=== PATIENT | female | born 1985 | race Caucasian/White ===

== ENCOUNTER 2018-12-06 07:14 | Outpatient (CLI) | payer OTHER ==
--- NOTE | 2018-12-07 09:57 | MRI Report ---
Reason: PAIN IN RIGHT KNEE, ILIOTIBIAL BAND SYNDROME Procedure Date: 12/06/2018 Accession Number: [id number] / [id number] Procedure: MRI - Knee RT W/O CPT Code: FULL RESULT: EXAM: RIGHT KNEE MRI WITHOUT CONTRAST EXAM DATE: 12/06/2018 07:38 AM. CLINICAL HISTORY: Pain in right knee, iliotibial band syndrome. COMPARISON: None. TECHNIQUE: Multiplanar, multisequence T1-weighted and fluid-sensitive sequences of the knee without contrast. Other: None. FINDINGS: Bones: Large osteophytes at the lateral femoral condyle. Moderate osteophytes at the medial femoral condyle. Mild spurring of the medial tibial plateau. Proximal posterior tibia 1.9 x 2.7 x 1.8 cm complex intraosseous ganglion cyst. Artifact from transverse fixation screws at the lateral aspect of the distal femur metaphysis, distal femur metaphysis osteotomy. Mild spurring of the posterior aspect of the lateral femoral condyle. Large osteophytes at the anterior aspect of the medial and lateral femoral condyles. Articular Cartilage: Moderate chondromalacia at the patella. Moderate chondromalacia at the trochlear groove. Moderate chondromalacia at the medial tibiofemoral compartment. Severe chondromalacia at the lateral tibiofemoral compartment. Medial Meniscus: Diminutive posterior horn of the medial meniscus and diminutive medial meniscus body, suggestive of a prior partial meniscectomy with no meniscus intrameniscal fluid signal to confirm a tear. Lateral Meniscus: Possible small free edge tear at the lateral meniscus body. Cruciate Ligaments: The anterior and posterior cruciate ligaments are intact. Collateral Ligaments: The medial collateral and lateral collateral ligamentous structures are intact. Tendons: Postsurgical changes with mild thickening in the distal iliotibial band. Musculature: No edema or fatty atrophy. Other: No effusion. No popliteal cyst. No loose bodies. The medial and lateral retinacula are intact. The subcutaneous tissues and fat pads are unremarkable. IMPRESSION: 1. Severe osteoarthritis of the patellofemoral compartment and tibiofemoral compartment. Kellgren-Ethan grade 3. 2. Possible small free edge tear at the lateral meniscus body. 3. Diminutive body and posterior horn of the medial meniscus, suggestive of prior surgery, with no intrameniscal fluid signal to confirm a medial meniscus tear. 4. Postsurgical changes and mild thickening in the iliotibial band. 5. Moderate quantity of fluid at the patella recesses. 6. Moderate chondromalacia patella, moderate chondromalacia grade 3 at the trochlear groove, and there is moderate chondromalacia at the medial tibiofemoral compartment. 7. Severe chondromalacia at the lateral tibiofemoral compartment. RADIA
== END 2018-12-06 07:15 | disposition home or self-care (01) ==
LOC: DI 07:14
PROVIDERS: ATTEND Orthopaedic Surgery
DX: M17.11 Unilateral primary osteoarthritis, right knee (principal); M94.261 Chondromalacia, right knee

== ENCOUNTER 2019-01-11 11:31 | Day surgery (SDC) | payer OTHER ==
[2019-01-11] MEDS ORDERED: LACTATED RINGERS 1,000 ML IV ONE ×2 (11:51→15:09)
[2019-01-11] MEDS ORDERED: EPINEPHrine 1 MG/ML AMP ONE (11:57)
--- NOTE | 2019-01-11 12:18 | ANESTHESIA ---
Pre-Anesthesia VS, & Labs - Diagnosis Rt knee symptomatic hardware, meniscal tear - Procedure right knee open hardware removal Vital Signs: Temp Pulse Resp BP Pulse Ox 36.4 C L 90 15 130/74 97 01/11/19 11:54 01/11/19 11:54 01/11/19 11:54 01/11/19 11:54 01/11/19 11:54 Height 6 ft Weight (kg) 100.7 kg - NPO >8 hours - Is Patient ?: No Home Medications and Allergies Home Medications: Ambulatory Orders Etonogestrel/Ethinyl Estradiol [Nuvaring Vaginal Ring] 1 each VG 01/03/19 Etonogestrel/Ethinyl Estradiol [Nuvaring Vaginal Ring] 1 each VG 01/03/19 Allergies/Adverse Reactions: Allergies Allergy/AdvReac Type Severity Reaction Status Date / Time No Known Drug Allergies Allergy Verified 01/03/19 08:37 Anes History & Medical History - Anesthetic History Anesthesia Complications: reports: No previous complications - Medical History Cardiovascular: reports: None, Arrhythmia (history of SVT, s/p ablation.) Pulmonary: reports: None Gastrointestinal: reports: None Urinary: reports: None Neuro: reports: None Musculoskeletal: reports: None Endocrine/Autoimmune: reports: None Blood Disorders: reports: None Skin: reports: None Smoking Status: Never smoker Psychosocial: reports: No issues indicated - Surgical History Eyes Ears Nose Throat (EENT): Other Cardiothoracic: Other Orthopedic: Arthroscopic surgery, Other Exam General: Alert, Oriented x3, Cooperative, No acute distress Dental: WNL Mouth Openin Fingerbreadth Neck Mobility: Normal Mallampati classification: I Thyromental Distance: greater than 6 cm Respiratory: Lungs clear, Normal breath sounds, No respiratory distress, No accessory muscle use Cardiovascular: Regular rate, Normal S1, Normal S2, No murmurs Mental/Cognitive Status: Alert/Oriented X3, Normal for patient Plan Anesthesia Type: General Consent for Procedure(s) Verified and Reviewed: Yes Code Status: Attempt Resuscitation ASA classification: 1-Healthy patient Is this case an emergency?: No
[2019-01-11 12:48] LABS: HCG UR QUAL NEGATIVE
[2019-01-11] MEDS: BUPIVACAINE 0.25% PF 30 ML VIAL ONE ×2 (13:37→14:52)
[2019-01-11] MEDS ORDERED: oxyCODONE 5 MG TABLET PO PRN (15:02)
[2019-01-11] MEDS ORDERED: ONDANSETRON 4 MG/2 ML VIAL IVP PRN (15:02)
[2019-01-11] MEDS: fentaNYL 100 MCG/2 ML VIAL ONE ×2 (15:13→15:18)
--- NOTE | 2019-01-11 15:14 | OPERATIVE REPORT ---
Operative Report - Other Other Information/Narrative: Date of Surgery: 11 January 2019 Pre-Op Diagnosis: Right knee medial and lateral cartilage lesions, meniscus tears, symptomatic implants Procedure: Right knee arthroscopy with chondroplasty of trochlea, medial femoral condyle, lateral femoral condyle. Loose body removal. Symptomatic implants removal from distal femur Postop Diagnosis: Same, add loose body Primary Surgeon: Titi Prescott Secondary Surgeon: None Complications: None Tourniquet Time: 85 minutes EBL: 50 cc Indication For Surgery: 33-year-old female with 5 surgeries on her knee. She is previously had a meniscus root repair as well as a opening wedge distal femur osteotomy. The osteotomy plate was symptomatic and she had posterior medial pain of the knee concerning for meniscus pathology. We discussed treatment options to include nonoperative and operative measures. She wanted to move forward with surgery to hopefully improve her symptoms with the understanding that she did have degenerative changes in the knee. The risks, benefits, and alternatives were discussed. Risks include pain, bleeding, infection, damage to nearby structures and cartilage, lack of symptom relief, need for further surgery, DVT, PE, stroke, and . Written consent was obtained. Examination Under Anesthesia: ROM 5-120. Stable dial at 30 & 90 degrees. Stable to varus and valgus stressing at 0 & 30 degrees. Normal Ginette. Normal Pivot shift. There was mechanical sensation with range of motion Arthroscopic Findings: A single loose body was removed from the notch. Synovium was hypertrophic and thickened. Patella cartilage grade 2-3 changes throughout. Trochlear cartilage had large full-thickness and partial-thickness lesions with unstable edges. Medial femoral condyle cartilage had a large full-thickness lesion with unstable edges and a flap that had ossified sticking out. Medial tibial plateau cartilage had grade 2/3 changes throughout. Medial meniscus was extruded from the joint, I could not see the posterior horn because of how tight the knee was, the root was likely out because the probe could move into the notch from the on the meniscus. ACL was normal. PCL was normal. Lateral femoral condyle cartilage had a large full-thickness lesion measuring 7 mm x 20 mm with unstable edges. Lateral tibial plateau cartilage had grade 2 3 changes throughout. Lateral meniscus showed no tears, the knee was very tight and I could not assess the posterior horn. Procedure in Detail: The patient was met in the pre-operative hold area on the day of the procedure. The operative extremity was signed and questions were answered. The patient was brought to the operating room and a general anesthetic was administered. Supine position was used and bony prominences were padded. An examination under anesthesia was performed. Standard prepping and draping was performed. A time out confirmed patient identification, laterality, procedure, allergies, antibiotics, and images. An Esmarch was used to exsanguinate the limb and the tourniquet was elevated to 250 mmHg. A standard diagnostic arthroscopy of the knee was performed through anterolateral and anteromedial portal sites. The anteromedial portal was created under direct visualization after localizing with a spinal needle. The findings can be found above. I then proceeded to remove the loose body from the notch. I then proceeded to use a shaver and biter to remove all unstable portions of the cartilage lesions in the medial femoral condyle, lateral femoral condyle, and trochlea. I then used the shaver to remove the osteophyte off the medial patella. I performed removal of the hypertrophic scar tissue with a shaver as well. Final images were taken and all arthroscopic fluid and instruments were removed from the knee. I then used her prior lateral incision to perform a lateral approach of the distal femur. Full-thickness skin flaps were obtained. The IT band was split in line of its fibers. Vastus lateralis was carefully lifted off of the fascia anteriorly to expose the plate to the lateral femur. The plate and screws were then removed without issue. The osteotomy site was seen as well healed and stable. The wound was irrigated copiously and the IT band was closed with in terrupted 0 Vicryl. 2-0 Vicryl was used in the dermis and a running Monocryl was in the skin. Portals were closed with buried Monocryl. 30 cc of 0.25% Marcaine without epinephrine was injected near the portal sites and lateral incision. A sterile dressing and compression stocking was placed. The patient was awakened and transferred to recovery in stable condition.
[2019-01-11] MEDS: HYDROmorphone 0.5 MG/0.5 ML SYRINGE ONE ×4 (15:23→15:38)
[2019-01-11] MEDS ORDERED: ONDANSETRON 4 MG/2 ML VIAL ONE (16:09)
[2019-01-11] MEDS ORDERED: oxyCODONE 5 MG TABLET ONE (16:10)
[2019-01-11 16:29] VITALS: BP 120/71
--- NOTE | 2019-01-11 20:30 | XRAY Report ---
Reason: REMOVING IMPLANTS Procedure Date: 01/11/2019 Accession Number: [id number] / [id number] Procedure: [place] - OR C-Arm Procedure CPT Code: Final Report FULL RESULT: EXAM: FLUOROSCOPIC GUIDANCE EXAM DATE: 01/11/2019 02:32 PM. CLINICAL HISTORY: REMOVING IMPLANTS. COMPARISON: None. FINDINGS: Please refer to impression IMPRESSION: Fluoroscopic guidance provided for right knee surgery. Total fluoroscopy time: 0.1 minute. Number of images: 2. DAMARIS
== END 2019-01-11 11:32 | disposition home or self-care (01) ==
LOC: SDS 11:31
PROVIDERS: ATTEND Orthopaedic Surgery
PROC: 0SCC4ZZ Extirpation of Matter from Right Knee Joint, Percutaneous Endoscopic Approach (ICD-10-PCS; 2019-01-11)
PROC: 0QPB04Z Removal of Internal Fixation Device from Right Lower Femur, Open Approach (ICD-10-PCS; principal; 2019-01-11 13:45)
PROC: 0SBC4ZZ Excision of Right Knee Joint, Percutaneous Endoscopic Approach (ICD-10-PCS; 2019-01-11 13:45)
DX: T84.84XA Pain due to internal orthopedic prosthetic devices, implants and grafts, initial encounter (principal); M17.11 Unilateral primary osteoarthritis, right knee; M23.41 Loose body in knee, right knee; M25.761 Osteophyte, right knee; Z86.79 Personal history of other diseases of the circulatory system; Z87.39 Personal history of other diseases of the musculoskeletal system and connective tissue
CPT/HCPCS: 81025

== ENCOUNTER 2019-11-23 09:38 | Outpatient (CLI) | payer OTHER ==
--- NOTE | 2019-11-26 10:27 | Ultrasound Report ---
LIMITED ULTRASOUND OF LEFT BREAST AND AXILLA: 11/23/2019 CLINICAL: Nipple discharge, left breast, not bloody. No prior exams were available for comparison. Color flow and real-time ultrasound of the left breast retroareolar and axilla regions were performe d. Rivas scale images of the real-time examination were reviewed. No significant abnormalities were seen sonographically in the left breast or the left axilla. IMPRESSION: NEGATIVE There is no sonographic evidence of malignancy. Return to annual screening schedule is recommended. This exam was interpreted at Station ID: [id number]. Electronically Signed By: Juan Diego Sharma M.D., jr/karoline:11/23/2019 11:20:25 Ultrasound BI-RADS: 1 Negative BI-RADS CATEGORY: (1) - 1 Unspecified - other [id number] return to screening LATERALITY: (B)
--- NOTE | 2019-11-26 10:27 | Mammography Report ---
BILATERAL DIGITAL DIAGNOSTIC MAMMOGRAM 3D/2D: 11/23/2019 CLINICAL: Nipple discharge, left breast, not bloody. No prior exams were available for comparison. The tissue of both breasts is extremely dense, which l owers the sensitivity of mammography. No significant masses, calcifications, or other findings are seen in either breast. IMPRESSION: INCOMPLETE: NEEDS ADDITIONAL IMAGING EVALUATION No suspicious mammographic findings. A targeted ultrasound of the left retroareolar region is recomme nded to evaluate nipple discharge, and is scheduled to immediately follow this exam. This exam was interpreted at Station ID: [id number]. NOTE: For mammograms, a report in lay terms will be sent to the patient. Approximately 15% of breast malignancies will not be visualized mammographically. In the management of a palpable breast mass, a negative mammogram must not discourage biopsy of a clinically suspicious lesion. Electronically Signed By: Juan Diego Sharma M.D. jr/:11/23/2019 10:36:48 ACR BI-RADS Category 0: Incomplete 3340F PARENCHYMAL PATTERN: (VD) - The breast(s) demonstrate(s) extremely dense parenchyma, limiting the sen sitivity of mammography. BI-RADS CATEGORY: (0) - 0 Ultrasound [id number] Immediate follow-up LATERALITY: (B)
== END 2019-11-23 09:39 | disposition home or self-care (01) ==
LOC: DI 09:38
PROVIDERS: ATTEND Surgery
DX: N64.52 Nipple discharge (principal)
CPT/HCPCS: 76642; 77066

== ENCOUNTER 2020-08-06 14:32 | Outpatient (CLI) | payer OTHER ==
--- NOTE | 2020-08-06 17:50 | MRI Report ---
PROCEDURE: Finger(s) RT W/O INDICATIONS: SPRAIN OF THUMB TECHNIQUE: Noncontrast oblique coronal T1 spin echo and T2 fast spin echo with fat saturation, axial and sagitta l T2 fast spin echo with fat saturation, through the thumb. COMPARISON: None. FINDINGS: Image quality: Excellent. Bones: The bones are normally aligned, without marrow contusions or fractures. No intra-osseous les ions. First carpometacarpal joint: On sagittal images, the dorsal radial ligament and posterior oblique li gament appear intact. The intermetacarpal ligament between the 1st and 2nd metacarpal bases also daniel ears intact. On the volar aspect, there is suggestion of sprain/low-grade partial thickness tear inv olving anterior oblique ligament near its proximal insertion. First metacarpophalangeal joint: The proper and accessory components of the radial collateral ligame nt appears intact, along with overlying fibers of the abductor pollicis brevis tendon. Mildly thicken ed ulnar collateral ligament with heterogeneous intrasubstance T2 hyperintense signal near its proxim al insertion is seen. The aponeurosis of the adductor pollicis muscle also appears normal. The volar plate appears intact on sagittal images, situated between the radial and ulnar sesamoids. Thenar muscles: The superficial abductor pollicis longus muscle appears normal, with tendon insertin g on the radial base of the first proximal phalanx. The opponens pollicis muscle also appears normal , inserting on the first metacarpal shaft. The flexor pollicis brevis muscle appears normal, with te ndon inserting on the radial sesamoid and first proximal phalanx. The oblique and transverse heads o f the adductor pollicis muscle appear normal, inserting on the ulnar sesamoid and proximal phalanx as part of the adductor aponeurosis. Flexor pollicis longus tendon: Tendon fibers appear intact, coursing between the thenar eminence mus cles and the adductor pollicis muscle, and inserting on the volar base of the distal phalanx. The fi rst annular tianna at the level of the first MCP joint appears intact, intimate with the sesamoids. The second annular tianna at the level of interphalangeal joint also appears intact. The oblique brooke ular tinana between the 1st and 2nd annular pulleys appears intact, with ulnar proximal attachment in timate with the adductor aponeurosis. The variable annular tianna also appears intact between the fi rst annular and oblique annular pulleys. Extensor tendons: The extensor pollicis brevis tendon appears intact, coursing radial to the extenso r pollicis longus tendon and inserting on the dorsal base of the proximal phalanx, blending with the dorsal plate of the first MCP joint. The extensor pollicis longus tendon appears intact as it insert s on the dorsal base of the distal phalanx. The sagittal band at the level of the first MCP joint ap pears intact. The abductor pollicis longus tendon slips appear intact at the radial aspect of the pr oximal phalanx, proximal to the abductor pollicis brevis tendon insertion. Miscellaneous: No ganglion cysts. IMPRESSION: 1. Sprain/low-grade partial thickness tear involving proximal portion of anterior oblique ligament at first CMC joint. 2. Sprain/low-grade partial thickness tear involving proximal ulnar collateral ligament of first MCP joint. 3. No marrow edema. No fracture or dislocation. 4. Extensor and flexor tendons are grossly intact. Reviewed by: Nj Mendez MD on 08/06/2020 5:49 PM PDT Approved by: Nj Mendez MD on 08/06/2020 5:49 PM PDT Station ID: [id number]
== END 2020-08-06 14:33 | disposition home or self-care (01) ==
LOC: DI 14:32
PROVIDERS: ATTEND Orthopaedic Surgery
DX: S63.641A Sprain of metacarpophalangeal joint of right thumb, initial encounter (principal); S53.31XA Traumatic rupture of right ulnar collateral ligament, initial encounter

== ENCOUNTER 2021-04-08 15:29 | Outpatient (CLI) | payer OTHER ==
[2021-04-08 16:33] VITALS: BP 117/76
--- NOTE | 2021-04-08 16:33 | SLEEP CARE CONSULTATION ---
Information from patient questionnaire entered by Misti Atkins MA. I have reviewed and concur with the information entered by Misti Atkins MA. This document represents the service I personally performed and the decisions made by , Ana Platt ARNP. History of Present Illness Service Date and Time: 04/08/2021 1529 Reason for Visit: New patient (ONSET 02/2020, PRIOR STUDY WAS NEG) Chief Complaint: reports: Snoring, Fatigue Date of Onset: 10 YEARS Usual bedtime: 10 PM Time it takes to fall asleep: 20 MINUTES Snores at night: Yes Observed to quit breathing while asleep: No Sleeps alone due to snoring: No Number of times waking at night: NOT OFTEN Reasons for waking at night: reports: Snoring, Bathroom Toss, Turn, or Twitch while sleeping: Yes Recalls having dreams: Yes Usually gets out of bed at: 0530; 1000 on weekends Feels refreshed in the morning: No Morning headache: No Sleepy or fatigued during the day: Yes Ever fallen asleep while driving: No Takes day naps: Yes (sometimes) Dreams during day naps: Yes Prior sleep studies: Yes Year and Where: 2013 [facility] Additional HPI information: I had the pleasure of seeing CLARA UREÑA today regarding the possibility of her having a sleep disorder. Her current complaints are snoring and fatigue. He complained about her snoring has been getting more frequent and loud. She states she is always tired. She has SAD and anxiety. The patient tells me that she normally goes to bed around 10-1030 pm, and it takes her approximately 5-10 minutes to fall asleep. She has been told that she snores loudly and irregularly at night. She has not been observed to stop breathing in her sleep. Her bed partner can still sleep in the same bed but sometimes will sleep separately. She can recall waking up on the average of 1-2 times during the night. Most of the time she wakes up because of bathroom. She has occasionally awakened for her own snoring and sometimes coughing. There is not a lot of tossing and turning in her sleep. Generally she can recall having dreams. She usually wakes up at 0530 and does not feel refreshed. She usually does not have a morning headache. During the day she complains of feeling sleepy and fatigued. She has never fallen asleep while driving nor has any accident due to sleepiness. She usually naps for about 1-2 hours during the day. If she naps, upon falling asleep during the day she admits to having dreams. She reports having impaired memory during the day. There is somniloquy (sleep talking) but no somnambulism (sleep walking). She has never experienced cataplexy. She does get some restless legs symptoms when she is walking around a lot when she lays down to sleep. - Parasomnia Symptoms Ever been unable to move upon waking from sleep: No Walks in sleep: No Talks in sleep: Yes Ever acted out dreams in sleep: No Ever felt weak in the knees when startled or emotional: No Bothered by creepy, crawly, restless sensations in legs: Yes Problems with memory or concentration: Yes (memory) Subjective Initial [place] Sleepiness Scale score: 11 (2021) Past Medical History Past Medical History: reports: Arthritis, Arrythmia (SVT), Fibromyalgia, Anxiety, Depression Social History The patient's occupation is a A/[employer] TE[employer]. Patient is and lives in [place]. Have you smoked in the past 12 months: No Alcohol use: No Caffeine use: Yes Caffeine amount and frequency: 2 X DAILY Family History Family history of sleep disordered breathing: Yes Family Hx Sleep Apnea: Mother: Snoring, Sibling: Snoring, Sleep apnea - Treated (TWO BROTHERS HAVE TREATED APNEA) Allergies and Home Medications Drug allergies reviewed: Yes (NKDA) Home medication list reviewed: Yes Allergy and home medication list: Allergies No Known Drug Allergies Allergy (Verified 01/03/19 08:37) Medications: Mobic Metoprolol Review of Systems Weight gain over past 5 years: 60 Cardiovascular: reports: palpitations, irregular heart rate or pulse Neurological: reports: headaches Psychiatric: reports: anxiety, depression Ear/Nose/Throat: reports: sinus problems, wisdom teeth removed. denies: tonsillectomy Endocrine: reports: sluggishness Musculoskeletal: reports: joint pain, neck pain, back pain, joint swelling, muscle pain or cramping Physical Exam Vital signs obtained and entered by: Inessa ATKINS CMA AANV Blood Pressure: 117/76 (LEFT, PULSE 79, RESP 16,) Cuff size: wrist Heart Rate: 78 O2 Saturation: 99 (WITH PAPER MASK) Height: 6 ft Weight: 250 lb (CLOTHES) Body Mass Index: 33.9 BMI Classification: Obese Neck circumference: 15.5 (inches) Mouth and throat: normal Soft palate: long Hard palate: normal Uvula: normal Uvula visualization: 100% Mallampati Class I Tongue: enlarged in size with teeth lucia on lateral edges Tonsils: small Neck: normal w/o lymphadenopathy or thyromegaly Heart: regular rate and rhythm Lungs: clear bilaterally Impression and Plan 1. Suspected Obstructive Sleep Apnea-Hypopnea Syndrome, as suggested by a history of loud and irregular snoring, unrefreshed sleep, cognitive impairment, and excessive daytime sleepiness. Narrow oropharynx and obesity are common predisposing factors for obstructive sleep apnea-hypopnea syndrome. I recommend proceeding to polysomnography to confirm the diagnosis and to assess severity. If the patient has significant sleep disordered breathing, a manual CPAP titration study will also be performed to find the optimal treatment pressure. I informed the patient of what the sleep studies involve and after some discussion, obtained agreement to proceed. The pathophysiology of obstructive sleep apnea-hypopnea syndrome was discussed with the patient and health risks of cardiovascular and cerebrovascular disease if not treated. AAS brochure for obstructive sleep apnea-hypopnea syndrome given and reviewed. Risks of drowsy driving discussed in detail and patient advised to avoid long distance driving and to machine tack puller at the first sign of drowsiness. Patient agreed to plan. * Schedule polysomnography +- manual CPAP titration study and return in 1-2 weeks after the study to discuss result and initiate therapy. * Avoid long distance driving or driving when feeling sleepy. * Avoid alcohol, sedative and muscle relaxant around bedtime. * Attempt to lose weight. * Review instructions provided by trained office staff on how to prepare for the sleep study. * Return for follow-up after sleep study completed. Counseling Topics: Weight loss health impact Visit Type: In Office Time Spent with Patient (minutes): 32 Provider Statement: I spent 100% of the Face to Face Visit with the patient with greater than 50% spent counseling the patient and coordination of care.
== END 2021-04-08 15:30 | disposition home or self-care (01) ==
LOC: SC 15:29
PROVIDERS: ATTEND Nurse Practitioner Family
DX: R06.83 Snoring (principal); G47.8 Other sleep disorders; G47.10 Hypersomnia, unspecified; R41.89 Other symptoms and signs involving cognitive functions and awareness
CPT/HCPCS: 99203; 99212

== ENCOUNTER 2021-05-16 19:18 | Outpatient (CLI) | payer OTHER | END 2021-05-16 19:19 | disposition home or self-care (01) | LOC: SC 19:18 | PROVIDERS: ATTEND Nurse Practitioner Family | DX: R06.83 Snoring (principal); G47.8 Other sleep disorders; R53.83 Other fatigue | CPT/HCPCS: 95810 ==

== ENCOUNTER 2021-05-29 10:40 | Outpatient (CLI) | payer OTHER ==
[2021-05-29 11:17] VITALS: BP 132/86
--- NOTE | 2021-05-29 11:17 | SLEEP CARE CONSULTATION ---
Information from patient questionnaire entered by Misti Bianchi MA. I have reviewed and concur with the information entered by Misti Bianchi MA. This document represents the service I personally performed and the decisions made by Giulia ribeiro Caren J, ARNP. History of Present Illness Service Date and Time: 05/29/2021 1040 Initial [place] Sleepiness Scale score: 11 (2021) Current [place] Sleepiness Scale score: 4 (06/12) Additional HPI information: CLARA UREÑA returns for follow up and results of the recently performed polysomnography. The patient was informed of the following findings: No significant sleep disordered breathing with an average AHI of 0.4 and marcelle oxygen saturation of 93%. I explained the pathophysiology behind obstructive sleep apnea. Patient does not have sleep apnea and was advised how weight gain could increase the risk of developing sleep apnea in the future. I strongly encouraged the patient to lose weight. Patient has light snoring. Snoring can be reduced by weight loss. Weight loss is best achieved with diet consult. Patient instructed to contact PCP for referral. Snoring can also be treated with an oral appliance from a dentist. Advised to check insurance coverage. In addition, an ENT evaluation can be do to see if other treatment is indicated. Patient does not drink alcohol. Patient was cautioned about risks of drowsy driving until sleepiness symptoms resolve. Patient denies drowsy driving. Sleep Study - Results Type of Sleep Study: Polysomnography (F/U POLY, 05/16/21 [facility],) Prior sleep studies: Yes Year and Where: 2013 [facility] Polysomnography/Home Sleep Study results: IMPRESSION: The quality of the study is good. The patient had normal sleep efficiency. The sleep architecture was relatively normal as well considering the first night effect. Respiratory monitoring showed no significant sleep disordered breathing (AHI = 0.4) or hypoxia (marcelle oxygen saturation of 93%). The patient slept adequately in supine position (supine AHI = 0.8; non-supine = 0.22). Snore was infrequent and light in intensity. There was no significant periodic leg movement of sleep. Cardiac rhythm was normal sinus rhythm without significant arrhythmia. No abnormal behavior (parasomnia) observed during the night. Allergies and Home Medications Known drug allergies: No Drug allergies reviewed: Yes Home medication list reviewed: Yes (no changes) Allergy and home medication list: Allergies No Known Drug Allergies Allergy (Verified 01/03/19 08:37) Review of Systems Review of systems same as previous: Yes (no changes) Physical Exam Vital signs obtained and entered by: CHETAN DE LUNA Blood Pressure: 132/86 (RESP 16, PULSE 72, RIGHT, ) Cuff size: wrist Heart Rate: 68 O2 Saturation: 99 (PAPER) Height: 6 ft Weight: 242 lb (WO CLOTHES) Body Mass Index: 32.8 BMI Classification: Obese Impression and Plan 1. Snoring but no significant sleep disordered breathing. Patient advised that often weight loss will reduce snoring as well as apnea risk. An oral appliance can also be used for snoring. This would require a dental consultation. Patient cautioned not to use other online appliances as can cause bite issues. A list of accredited dentists in [facility] who make oral appliances is available in office. Patient is advised to check if insurance will cover. An ENT consult can also be helpful to determine if any other treatment is an option. * Attempt to lose weight * Return as needed for follow up. Counseling Topics: Weight loss health impact Visit Type: In Office Time Spent with Patient (minutes): 11 Provider Statement: I spent 100% of the Face to Face Visit with the patient with greater than 50% spent counseling the patient and coordination of care.
== END 2021-05-29 10:41 | disposition home or self-care (01) ==
LOC: SC 10:40
PROVIDERS: ATTEND Nurse Practitioner Family
DX: R06.83 Snoring (principal); E66.9 Obesity, unspecified; Z68.32 Body mass index [BMI] 32.0-32.9, adult
CPT/HCPCS: 99212

== ENCOUNTER 2021-11-02 12:57 | Outpatient (CLI) | payer OTHER ==
--- NOTE | 2021-11-02 16:13 | MRI Report ---
PROCEDURE: Shoulder LT W/O INDICATIONS: PAIN IN LEFT SHOULDER TECHNIQUE: Noncontrast oblique coronal T2 fast spin echo with fat saturation, oblique sagittal T1 spin echo and T2 fast spin echo with fat saturation, axial T1 spin echo and T2 fast spin echo with fat saturation t hrough the shoulder. COMPARISON: None. FINDINGS: Image quality: Excellent. Rotator cuff: Low-grade articular and bursal surface partial-thickness tear involving distal supraspi natus at its insertion on humeral head is seen extending to musculotendinous junction. Distal infrasp inatus tendinosis is seen. Distal subscapularis tendinosis is also noted. No full-thickness rotator c uff tendon rupture. No significant rotator cuff muscle atrophy on sagittal images. Bones and bursae: No bone marrow contusions or fractures. Mild acromioclavicular joint osteoarthriti c changes are seen with downward osteophyte formation depressing on musculotendinous junction of supr aspinatus. Small amount of subacromial subdeltoid bursal fluid is seen. Capsule and soft tissues: There is subtle signal abnormality and contour irregularity involving super ior anterior labrum at 12 to 1:00 position concerning for subtle superior anterior labral tear. The l federico head of the biceps tendon demonstrates normal location and morphology. The rotator interval appe ars normal, without fibrosis. The coracohumeral ligament is normal in thickness. IMPRESSION: 1. Tendinosis and low-grade articular and bursal surface partial-thickness tear involving distal supr aspinatus extending to musculotendinous junction. Distal infraspinatus and subscapularis tendinosis. No full-thickness rotator cuff tendon rupture. 2. Mild acromioclavicular joint osteophyte is. No marrow edema. No fracture or dislocation. Small yelitza unt of subacromial subdeltoid bursal fluid. 3. Suggestion of subtle superior anterior labral tear at 12 to 1:00 position. Reviewed by: Nj Mendez MD on 11/02/2021 4:12 PM PDT Approved by: Nj Mendez MD on 11/02/2021 4:12 PM PDT Station ID: [id number]
== END 2021-11-02 12:58 | disposition home or self-care (01) ==
LOC: DI 12:57
PROVIDERS: ATTEND Orthopaedic Surgery
DX: M75.112 Incomplete rotator cuff tear or rupture of left shoulder, not specified as traumatic (principal); M19.012 Primary osteoarthritis, left shoulder

== ENCOUNTER 2022-06-15 07:57 | Outpatient (CLI) | payer OTHER ==
--- NOTE | 2022-06-15 15:39 | MRI Report ---
PROCEDURE: CERVICAL SPINE WO INDICATIONS: CERVICALGIA, LUMBAGO TECHNIQUE: Noncontrast sagittal T1 spin echo and T2 fast spin echo, sagittal STIR, foraminal oblique sagittal T2 fast spin echo, and axial gradient echo or T2 fast spin echo through the cervical spine. COMPARISON: Correlation is made with the accompanying lumbar spine MRI, 06/15/2022. FINDINGS: Image quality: Excellent. Alignment and Curvature: There is normal bony alignment. Bone Marrow: An unfused dens is seen. No associated abnormal STIR signal is seen to suggest an acute abnormality. Marrow demonstrates normal overall signal. Spinal Cord: Visualized spinal cord has normal size and signal. No cerebellar tonsillar herniation. Paraspinous Soft Tissues: No paravertebral masses. Prevertebral soft tissues are normal in thicknes s. C2-C3: Normal in appearance. C3-C4: Mild loss of disc height and disc signal are seen. Moderate disc osteophyte complex is seen . There is a mild central disc protrusion seen. Mild facet hypertrophy is seen. There is moderate r ight-sided and [id number] left-sided neuroforaminal narrowing seen. Mild to moderate central ca nal narrowing is seen, with minimal mass effect seen upon the ventral spinal cord. C4-C5: The disc height is well-preserved. There is loss of disc signal seen. Mild disc osteophyte c omplex is seen. Mild facet hypertrophy is seen. Moderate bilateral neural foraminal narrowing is seen. Mild to moderate central canal narrowing is seen, with minimal mass effect upon the ventral spi nal cord. C5-C6: The disc height is well-preserved. There is loss of disc signal seen. Moderate disc osteophy te complex is seen. Moderate facet hypertrophy is seen. Moderate to severe bilateral neuroforaminal narrowing is seen. Mild to moderate central canal narrowing is seen, with minimal mass effect upon th e ventral spinal cord. C6-C7: The disc height is relatively well preserved. Mild to moderate disc osteophyte complex is see n. Moderate facet hypertrophy is seen. Moderate to severe bilateral neuroforaminal narrowing can be s een. Mild central canal narrowing is seen. C7-T1: The disc height is relatively well preserved. Mild disc osteophyte complex is seen. Mild fa cet hypertrophy is seen. No significant neural foraminal or central canal narrowing can be seen. 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 Please correlate with remote trauma versus a congenital anomaly. If clinical ly appropriate, a follow-up dedicated cervical spine CT could be considered for further evaluation. Multiple levels of cervical spine degenerative change are seen, with mild to moderate central canal n arrowing seen at C3-C4, C4-C5, and C5-C6. Moderate to severe bilateral neuroforaminal narrowing can be seen at C5-C6. Reviewed by: Pepe Mayo MD on 06/15/2022 2:37 PM AKDT Approved by: Pepe Mayo MD on 06/15/2022 2:37 PM AKDT Station ID: [id number]
--- NOTE | 2022-06-15 15:42 | MRI Report ---
PROCEDURE: LUMBAR SPINE WO INDICATIONS: CERVICALGIA, LUMBAGO TECHNIQUE: Noncontrast sagittal T1 spin echo and T2 fast echo, sagittal STIR, axial T1 and T2 fast spin echo thr ough the lumbar spine. In cases with scoliosis, additional coronal T2 fast spin echo may be performe d. COMPARISON: Correlation to examining cervical spine MRI, 06/15/2022. FINDINGS: Image quality: Excellent. Alignment and Curvature: There is normal bony alignment. Bone Marrow: Marrow is of normal overall signal. No acute vertebral body compression fractures. Spinal Cord: Conus medullaris terminates at the L1 level. Visualized cord demonstrates normal signa l and size. Paraspinous Soft Tissues: No paravertebral masses. T12-L1: Normal in appearance. L1-L2: Mild to moderate loss of disc height and disc signal can be seen. Mild disc bulge is seen. A superimposed central disc protrusion is seen. Mild facet hypertrophy is seen. There is modera te right-sided and mild left-sided neuroforaminal narrowing. Minimal central canal narrowing is seen. L2-L3: The disc height is relatively well preserved. Mild disc bulge is seen. Mild facet hypertr ophy is seen. Mild to moderate bilateral neuroforaminal narrowing can be seen. No significant central canal narrowing is seen. L3-L4: The disc height is well-preserved. There is loss of disc signal seen. Mild disc bulge is se en. A superimposed central disc protrusion is seen. Mild facet hypertrophy is seen. Mild to moderate bilateral neuroforaminal narrowing can be seen. Mild central canal narrowing is seen. L4-L5: Mild loss of disc height and disc signal are seen. Mild to moderate disc bulge is seen. Mil d facet hypertrophy is seen. Moderate bilateral neuroforaminal narrowing can be seen, right worse rambo n left. Mild central canal narrowing is seen. L5-S1: Moderate loss of disc height and signal are seen. Reactive marrow endplate changes are se en anteriorly, which are on hypointense on T1-weighted and hyperintense T2-weighted imaging, with a ssociated increased STIR signal. These imaging findings are most consistent with endplate edema (Nicola c type 1 change). Moderate disc bulge is seen, which is eccentric to the left. Moderate facet hype rtrophy is seen. Moderate to severe bilateral neural foraminal narrowing can be seen, with associate d compression upon the exiting nerve roots. Moderate central canal narrowing is seen. IMPRESSION: Lumbar spine degenerative changes are seen, which are worst at the L5-S1 level. Reviewed by: Pepe Mayo MD on 06/15/2022 2:40 PM EMILY Approved by: Pepe Mayo MD on 06/15/2022 2:40 PM EMILY Station ID: [id number]
== END 2022-06-15 07:58 | disposition home or self-care (01) ==
LOC: DI 07:57
PROVIDERS: ATTEND Student in an Organized Health Care Education/Training Program
DX: M54.41 Lumbago with sciatica, right side (principal); M47.812 Spondylosis without myelopathy or radiculopathy, cervical region; M48.02 Spinal stenosis, cervical region; M47.816 Spondylosis without myelopathy or radiculopathy, lumbar region; M47.817 Spondylosis without myelopathy or radiculopathy, lumbosacral region